=== PATIENT | female | born 1945 | race Caucasian/White ===

== ENCOUNTER → 2017-05-26 | Outpatient (CLI) | payer MEDICARE, OTHER ==
--- NOTE | 2017-05-27 11:41 | MRI ---
EXAM DESCRIPTION: Lumbar Spine w/o Contrast MRI. CLINICAL HISTORY: INTERVERTEBRAL DISC DISEASE COMPARISON: X-ray lumbar at [facility] May 20 2017. TECHNIQUE: Multiplanar, multiple standard sequences, non contrast MRI, lumbar spine. FINDINGS: L5-S1: Significant disc space narrowing especially laterally with minimal disc remnant anterior and posterior. Posterior disc remnant with spurs bulging 4 mm and abutting the thecal sac. Mild canal narrowing. Bilateral flavum ligament hypertrophy and facet arthrosis abutting the thecal sac. Posterior endplate ridging encroaching on the bilateral foramina which are borderline stenotic, more narrowing right. L4-5: Disc desiccation and minimal disc space loss. Minimal anterior bulging. Small Schmorl's nodes inferior L4. Trace anterolisthesis. Posterior broad-based 4 mm disc bulge abutting the thecal sac. Bilateral flavum ligament hypertrophy and facet joint effusion impressing on the lateral sac. Larger effusion at the left facet with posterior synovial cyst. Mild canal stenosis. Subarticular recesses are patent. Bilateral mild foraminal narrowing. L3-4: Disc desiccation and moderate disc space loss. Anterior bulging and endplate ridging. Modic type II endplate reactive changes anteriorly and to the left of midline. Posterior broad-based disc bulge 4 mm abutting the thecal sac. Bilateral facet arthrosis and flavum ligament hypertrophy impressing the sac. Borderline mild canal stenosis. Left side disc osteophyte complex encroaching on the foramen which is stenotic. Mild to moderate narrowing of the right foramen. L2-3: Normal signal in the disc with no bulging and disc space preserved. Minimal bulge into the left foramen. Flavum ligament hypertrophy abutting the thecal sac. Minimal canal narrowing. L1-L2: Minimal disc desiccation. Minimal anterior bulging. Disc space preserved and no posterior bulging. Minimal flavum ligament hypertrophy. Facets are unremarkable. Bilateral foramina are patent. T12-L1: Normal signal in the disc and disc space preserved. Posterior elements are unremarkable. Canal and foramina are patent. Conus terminates at this level. No scoliosis. Paravertebral soft tissues minimal muscle atrophy. Bilateral renal cysts or cyst like lesions and possible hydronephrosis.. Otherwise normal marrow signal in the remaining vertebral bodies and the posterior elements. Vertebral bodies are not compressed at any level. IMPRESSION: 1. Significant L5-S1 disc space narrowing and advanced spondylosis. Disc remnant posteriorly abutting the thecal sac. Bilateral endplate spur encroaching on the foramina which are borderline stenotic more on the right. Correlate for bilateral L5 radiculopathy. 2. Trace anterolisthesis L4-5. Posterior broad-based bulge. Multifactorial mild canal stenosis. Posterior facet arthrosis more on the left with posterior synovial cyst. 3. Moderate spondylosis anterior and to the left of midline at L3-4. Encroachment on the foramen which is mildly stenotic. Correlate for left L3 radiculopathy. Posterior disc bulge, and posterior element hypertrophy and arthrosis with multifactorial borderline canal stenosis. Electronically signed by: León Garcia MD 05/27/2017 11:39 AM CDT
== END ==
LOC: MRI 10:00
PROVIDERS: ATTEND Family Medicine
DX: M51.27 Other intervertebral disc displacement, lumbosacral region (principal); M47.9 Spondylosis, unspecified

== ENCOUNTER → 2017-06-02 | Outpatient (CLI) | payer MEDICARE, OTHER | LOC: RESP 10:03 | PROVIDERS: ATTEND Orthopaedic Surgery | DX: Z01.818 Encounter for other preprocedural examination (principal) ==

== ENCOUNTER 2017-06-24 05:44 | Day surgery (SDC) | payer MEDICARE, OTHER ==
[2017-06-24] MEDS ORDERED: LACTATED RINGERS 1,000 ML ONE (06:53)
[2017-06-24] MEDS ORDERED: methylPREDNISolone ACETATE 80 MG/ML VIAL ONE ×2 (08:09→12:26)
[2017-06-24] MEDS ORDERED: LIDOCAINE 1% W/ EPINEPHRINE 20 ML VIAL INJ ONE ×2 (08:09→12:26)
[2017-06-24] MEDS ORDERED: BUPIVACAINE 0.25% INJ 30 ML VIAL INJ ONE ×2 (08:09→12:26)
[2017-06-24] MEDS ORDERED: PROPOFOL 200 MG/20 ML VIAL IV ONE (10:00)
[2017-06-24 15:07] VITALS: TEMP 97.1
[2017-06-24 15:08] VITALS: BP 146/78; O2SAT 98
--- NOTE | 2017-06-25 09:26 | OP ---
DATE OF PROCEDURE: 06/24/17 PREOPERATIVE DIAGNOSIS: 1. Osteoarthritis of the hip. POSTOPERATIVE DIAGNOSIS: 1. Osteoarthritis of the hip. PROCEDURE: 1. Intraarticular injection. SURGEON: Jack Calhoun MD. [employer] MANAGER: León Taylor CST, SA-C. ANESTHESIA: Conscious sedation. COMPLICATIONS: None. FINDINGS: Severe osteoarthritis of the hip. INDICATION: The patient has a long history of pain in the hip. The pain is localized to the joint. Because of the ongoing pain and failure of more conservative measures, she has requested operative intervention. After discussing the risks, benefits and alternatives to that, the patient has given informed consent for that. PROCEDURE: The patient was brought to the Operating Room and placed in supine position. Conscious sedation was administered and the leg was flexed, abducted and externally rotated. The groin was prepped and fluoroscopic imaging was used to confirm needle placement into the hip joint through a medial portal. Once placement had been confirmed, a combination of lidocaine and Depo-Medrol were injected into the joint. After injection, the needle was withdrawn. Pressure was held on the injection site. A sterile band-aid was placed. The patient was then taken back to the Day Surgery Unit. POSTOPERATIVE INSTRUCTIONS: The patient will be weight-bearing as tolerated. The patient will followup with us in 10 days. #[id number] #[id number] [facility]
== END 2017-06-24 13:45 | disposition home or self-care (01) ==
LOC: AMB 05:44
PROVIDERS: ATTEND Orthopaedic Surgery
DX: M16.11 Unilateral primary osteoarthritis, right hip (principal); I12.9 Hypertensive chronic kidney disease with stage 1 through stage 4 chronic kidney disease, or unspecified chronic kidney disease; N18.9 Chronic kidney disease, unspecified; Z88.5 Allergy status to narcotic agent; Z88.2 Allergy status to sulfonamides; Z88.8 Allergy status to other drugs, medicaments and biological substances; Z79.899 Other long term (current) drug therapy
CPT/HCPCS: 01200; 20611; 76000; J1030; J3490; J7120

== ENCOUNTER → 2017-09-02 | Outpatient (CLI) | payer MEDICARE, OTHER | LOC: LAB.O 10:39 | PROVIDERS: ATTEND Orthopaedic Surgery | DX: Z01.818 Encounter for other preprocedural examination (principal) ==

== ENCOUNTER → 2017-11-19 | Outpatient (CLI) | payer MEDICARE, OTHER | LOC: GMAJ 11:35 | PROVIDERS: ATTEND Family Medicine | DX: I10 Essential (primary) hypertension (principal) ==

== ENCOUNTER → 2017-12-02 | Outpatient (CLI) | payer MEDICARE, OTHER ==
--- NOTE | 2017-12-03 15:07 | MAM ---
EXAM DESCRIPTION: 3D Screening BILATERAL : Digital Mammography. CLINICAL HISTORY: 72 years Female SCREENING . No complaints. No personal or family history of breast cancer. Childbirth. Postmenopausal 32 years. Taken HRT 5 or more years ago. Prior left breast biopsy benign.. Lifetime risk of developing breast cancer (Tyrer-Cuzick model)(%): 4.6. COMPARISON: Baseline study at this facility.. No prior reports available. TECHNIQUE: Bilateral CC and MLO projection full-field images, Digital tomosynthesis mammographic technique. Bilateral digital 2-D full-field MLO images. CAD not utilized. FINDINGS: The breast parenchymal density pattern is: Scattered areas of fibroglandular density. No skin thickening or nipple retraction. Right breast axillary lymph node. Intramammary lymph nodes left breast. Focal asymmetry in the mid to posterior third of the right breast at the 930 clock position approximately 6.5 cm from the nipple. Not associated with microcalcifications No focal, stellate mass or density, focal asymmetry , and no suspicious microcalcifications left breast. IMPRESSION: BI-RADS CATEGORY: 0 - INCOMPLETE- Need additional imaging evaluation. FOLLOW-UP: Recall for additional imaging: Orthogonal full-field digital diagnostic imaging Of the right breast, with targeted right breast ultrasound depending on diagnostic image findings. Written communication concerning the IMPRESSION and Follow-up, will be mailed to the patient and referring health care provider. Electronically signed by: León Garcia MD 12/03/2017 3:05 PM CDT
== END ==
LOC: MAMMO 09:53
PROVIDERS: ATTEND Family Medicine
DX: Z12.31 Encounter for screening mammogram for malignant neoplasm of breast (principal)

== ENCOUNTER → 2018-07-21 | Outpatient (CLI) | payer MEDICARE, OTHER ==
--- NOTE | 2018-07-22 17:03 | US ---
US THYROID CLINICAL STATEMENT: THYROID NODULE. COMPARISON: None TECHNIQUE: Transcutaneous scanning, grayscale and Doppler modes. FINDINGS: Size right thyroid lobe: 4.0 x 2.1 x 1.7 cm Size left thyroid lobe: 4.2 x 2.5 x 1.6 cm Size isthmus: 0.17 cm Estimated total number of nodules greater than or equal to 1 cm: 6. Is heterogeneous. Nodule 1: Size: 1.6 x 1.6 x 1.3 cm Location: Left Upper Composition: solid or almost completely solid: 2 points Echogenicity: hypoechoic: 2 points Shape: wider than tall: 0 points Margins: smooth: 0 points Echogenic foci: none: 0 points ACR Total Points: 4; ACR TI-RADS risk category: TR4 - moderately suspicious nodule. Nodule 2: Size: 1.6 x 1.0 x 0.9 cm Location: Right Lower Composition: solid or almost completely solid: 2 points Echogenicity: hypoechoic: 2 points Shape: wider than tall: 0 points Margins: smooth: 0 points Echogenic foci: none: 0 points ACR Total Points: 4; ACR TI-RADS risk category: TR4 - moderately suspicious nodule. Nodule 3: Size: 1.5 x 1.0 x 0.7 cm Location: Right Lower Composition: solid or almost completely solid: 2 points Echogenicity: hyperechoic: 1 point Shape: wider than tall: 0 points Margins: smooth: 0 points Echogenic foci: none: 0 points ACR Total Points: 3; ACR TI-RADS risk category: TR3 - mildly suspicious nodule. Nodule 4: Size: 1.3 x 1.0 x 1.0 cm Location: Left Mid Composition: solid or almost completely solid: 2 points Echogenicity: very hypoechoic: 3 points Shape: wider than tall: 0 points Margins: smooth: 0 points Echogenic foci: none: 0 points ACR Total Points: 5; ACR TI-RADS risk category: TR4 - moderately suspicious nodule. 2 other nodules were seen measuring at least 1 cm: 1.0 x 0.8 x 0.6 in the right lobe. 1.0 x 0.7 x 0.6 in the left lobe. No dominant solid mass, no distinct cyst, no parenchymal edema, and no abnormal vascularity or large calcifications in the soft tissues. IMPRESSION: 1. Nodule 1: ACR TI-RADS 2017 Category TR4. Recommend: Ultrasound-guided fine needle aspiration. Recommendations based upon [employer] Best Practice recommendations and ACR TI-RADS 2017 guidelines. Please see below*. 2. Nodule 2: ACR TI-RADS 2017 Category TR 4. Recommend: Ultrasound-guided fine needle aspiration 3. Nodule 3: ACR TI-RADS 2017 Category TR3. Recommend: Follow-up ultrasound in 1 year. 4. Nodule 4: ACR TI-RADS 2017 Category TR 4. Recommend: Follow-up ultrasound in 1 year. Soft tissue around the thyroid gland is unremarkable. *ACR TI-RADS 2017 Recommendations: TR1: No FNA or follow up TR2: No FNA or follow up TR3: FNA if >/= 2.5 cm, follow up if 1.5 - 2.4 cm in 1, 3, and 5 years TR4: FNA if >/= 1.5 cm, follow up if 1.0 - 1.4 cm in 1, 2, 3, and 5 years TR5: FNA if >/= 1.0 cm, follow up if 0.5 - 0.9 cm every year for 5 years ACR TI-RADS recommends that no more than two nodules with the highest ACR TI-RADS total point should be biopsied and no more than four nodules should be followed. These recommendations do not apply to patients with increased risk for thyroid cancer or patients with symptomatic thyroid disease. Electronically signed by: León Garcia MD 07/22/2018 5:01 PM CDT
== END ==
LOC: US 14:00
PROVIDERS: ATTEND Family Medicine
DX: E04.2 Nontoxic multinodular goiter (principal)

== ENCOUNTER → 2018-07-22 | Outpatient (CLI) | payer MEDICARE, OTHER ==
--- NOTE | 2018-07-23 10:17 | CT ---
EXAM DESCRIPTION: Abdomen/Pelvis w/o Contrast: Computed Tomography. CLINICAL HISTORY: 72 years Female KIDNEY MASS multiple cysts or cystic masses. COMPARISON: Lumbar spine MRI scan without contrast 05/26/2017. TECHNIQUE: Spiral-axial scans 2.5 x 2.5 mm intervals through the abdomen and pelvis without oral or IV contrast. Coronal and sagittal 2.0 mm reconstructions. Total Exam DLP: 498.78 mGy-cm. This exam was performed according to our departmental CT dose-optimization program which includes automated exposure control, adjustment of the mA and/or kV according to patient size and/or use of iterative reconstruction technique; to reduce radiation dose to as low as reasonably achievable (ALARA). FINDINGS: Lung bases and pleura: Parenchymal pleural thickening in the inferior lingula. Liver, stomach, spleen, and adrenal glands: Calcification in the posterior wall of the gastric antrum. Normal size density liver, spleen, adrenal glands. No ascites. Pancreas, Gallbladder, and Ducts: Calcification abutting the pancreas present to be in the splenic artery. Gallbladder small. Duct and pancreas otherwise negative. Kidneys and Ureters: Bilateral low-density objects in the kidneys. 9 in the right kidney and 6 in the left kidney. Through these regions in the right kidney are low-density with no well-defined margins and Hounsfield density +25 and +34. One is lateral abutting the liver in the upper pole and the second is anterior at the level of the right renal hilum. No calcifications. No hydronephrosis or perirenal fluid bilaterally. Included ureters show no radiodense stones. Mesentery: No fatty stranding or fascial thickening. Aorta: Moderate atherosclerotic calcification and narrowing of the lumen. Small Bowel: Gas in multiple segments but nondistended with no air-fluid levels. Terminal Ileum/Cecum: Normal caliber TI with minimal distention of the cecum by fecal matter. Small stump of the appendix. No inflammatory changes. Colon: Minimal to moderate fecal material throughout the colon. Small diverticula in the included sigmoid colon with no inflammatory changes or obstruction. Pelvic Organs: No free fluid. No radiodense stones in the urinary bladder. Vaginal cuff grossly normal. Spine and Bony Pelvis: Spondylosis L5-S1 canal and foraminal narrowing. Also L3-4 L4-5 with canal and foraminal narrowing and grade 1 anterolisthesis L4-5. Right total hip arthroplasty with no bony complications but the distal femoral stem is not visualized. Arthrosis left hip joint. Abdominal Wall/Back Soft Tissues: Small bilateral fatty inguinal hernias not containing bowel. Umbilical diastases not containing bowel. IMPRESSION: 1. Multiple low-density structures bilateral kidneys with most of these measuring has fluid density cyst. 2 lesions in the right kidney measuring as solid density. Noncontrast evaluation for renal mass is not sensitive. If patient able to tolerate IV contrast, recommend follow-up renal CT contrast protocol. If not able to tolerate IV contrast, consider MRI scan kidneys without and with IV gadolinium contrast and/or ultrasound. MRI is a more sensitive examination. 2. Calcification in the posterior wall of the gastric antrum. No apparent wall thickening or intrinsic mass. No adjacent omental inflammatory changes or fluid. 3. Diverticulosis of the distal colon with no evidence of complications. 4. Spondylosis lumbar spine and thoracic spine. Electronically signed by: León Garcia MD 07/23/2018 10:15 AM CDT
== END ==
LOC: RAD 10:37
PROVIDERS: ATTEND Internal Medicine Nephrology
DX: N18.4 Chronic kidney disease, stage 4 (severe) (principal); N28.89 Other specified disorders of kidney and ureter; K31.89 Other diseases of stomach and duodenum; K57.30 Diverticulosis of large intestine without perforation or abscess without bleeding; M47.896 Other spondylosis, lumbar region; M47.894 Other spondylosis, thoracic region

== ENCOUNTER → 2018-07-24 | Outpatient (CLI) | payer MEDICARE, OTHER | LOC: LAB.O 08:56 | PROVIDERS: ATTEND Internal Medicine Nephrology | DX: N18.4 Chronic kidney disease, stage 4 (severe) (principal) ==

== ENCOUNTER → 2018-08-11 | Outpatient (CLI) | payer MEDICARE, OTHER ==
--- NOTE | 2018-08-11 12:02 | MRI ---
EXAM DESCRIPTION: Abdomen CLINICAL HISTORY: 73 years Female, KIDNEY MASS COMPARISON: CT abdomen and pelvis without contrast dated . TECHNIQUE: Multiplanar multiecho imaging of the abdomen was performed without gadolinium administration. FINDINGS: The visualized lower thorax appears normal. Limited evaluation of the solid organs due to the lack of intravenous contrast. The liver, gallbladder, pancreas and spleen appear normal. Bilateral adrenal glands demonstrate no gross abnormality. Multiple T2 hyperintense lesions are identified throughout both kidneys most likely representing simple cysts. No definite solid lesion is identified in the right kidney in the areas of concern, on this noncontrast examination. The stomach is well-distended and appears grossly normal. Multiple diverticula are noted in the imaged portions of the colon. Degenerative changes are identified in the visualized spine.. IMPRESSION: Bilateral simple renal cysts are identified. No evidence of solid lesion on this noncontrast examination. Incidental note is made of colonic diverticulosis. Electronically signed by: Makenna Link MD 08/11/2018 11:59 AM CDT
== END ==
LOC: MRI 09:06
PROVIDERS: ATTEND Internal Medicine Nephrology
DX: N28.89 Other specified disorders of kidney and ureter (principal); N28.1 Cyst of kidney, acquired; K57.30 Diverticulosis of large intestine without perforation or abscess without bleeding

== ENCOUNTER → 2018-10-01 | Outpatient (CLI) | payer MEDICARE, OTHER ==
--- NOTE | 2018-10-02 09:47 | US ---
EXAM DESCRIPTION: Venous,Upper Extremity RT: ULTRASOUND. CLINICAL HISTORY: PHLEBITIS AND THROMBOPHLEBITIS OF OTHER SITES. Injury to right arm which is palpable. COMPARISON: None Available. TECHNIQUE: Two -dimensional and doppler sonographic evaluation of the deep venous system of the right upper extremity. FINDINGS: Doppler evaluation shows normal color flow and normal phasicity and augmentation of the right subclavian, jugular, axillary, basilic, brachial, radial vein and ulnar vein.. The right cephalic vein was not visualized. The right upper extremity deep veins showed normal occlusion with transducer pressure. Two-dimensional survey showed no echogenic thrombus within these veins. Soft tissue mass palpable at the region of injury is heterogeneous dense and not vascular. Subdermal adipose layer. Dimensions are 10.9 x 6.1 x 4.6 mm. Nonvascular. IMPRESSION: Duplex ultrasound evaluation of the right upper extremity deep venous system showing no thrombosis. Subcutaneous heterogeneous mass corresponding to injury, most likely resolving hematoma.. Electronically signed by: León Garcia MD 10/02/2018 9:46 AM CDT
== END ==
LOC: US 09:00
PROVIDERS: ATTEND Family Medicine
DX: I80.8 Phlebitis and thrombophlebitis of other sites (principal); R22.31 Localized swelling, mass and lump, right upper limb

== ENCOUNTER → 2018-12-10 | Outpatient (CLI) | payer MEDICARE, OTHER ==
--- NOTE | 2018-12-14 08:40 | MAM ---
EXAM DESCRIPTION: 3D Screening BILATERAL : Digital Mammography. CLINICAL HISTORY: 73 years Female ANNUAL SCREENING no complaints. No personal or family history of breast cancer. Menarche age 11. Childbirth. Hysterectomy 20+ years. HRT less than 5 years ago. Prior left benign breast biopsy. Lifetime risk of developing breast cancer (Tyrer-Cuzick model)(%): 5.9. COMPARISON: Bilateral screening digital breast tomosynthesis 02 December 2017.. TECHNIQUE: Bilateral CC and MLO projection full-field images, digital tomosynthesis mammographic technique. Bilateral digital 2-D full-field MLO images. CAD not available for tomosynthesis or 2-D images. FINDINGS: The breast parenchymal density pattern is: Heterogeneously dense breasts which may obscure small masses. No skin thickening or nipple retraction. Bilateral vascular calcifications. Right axillary lymph node. Bilateral skin moles. Bilateral solitary microcalcifications. No new focal, stellate mass or density, focal asymmetry , and no suspicious microcalcifications bilaterally. Stable mammograms compared to prior study. IMPRESSION: Benign exam. BIRAD CATEGORY: 2 BENIGN FINDINGS. RECOMMENDATIONS: FOLLOW UP: Routine digital bilateral mammographic screening, one year interval from November 2018. Written communication explaining the IMPRESSION and follow-up, will be mailed to the patient and referring health care provider. According to the [employer], yearly mammograms are recommended starting at age 40 and continuing as long as a woman is in good health. Any breast change noted on a breast self-exam should be reported promptly to the patient's healthcare provider. Breast MRI is recommended for women with an approximately 20-25% or greater lifetime risk of breast cancer, including women with a strong family history of breast or ovarian cancer and women who have been treated for Hodgkin's disease. A negative mammographic report should not delay tissue diagnosis in patients with significant clinical history or physical findings. Extremely dense breast tissue limits the sensitivity of digital mammography. Electronically signed by: León Garcia MD 12/14/2018 8:38 AM [employer]
== END ==
LOC: MAMMO 09:00
PROVIDERS: ATTEND Family Medicine
DX: Z12.31 Encounter for screening mammogram for malignant neoplasm of breast (principal)

== ENCOUNTER → 2019-03-08 | Outpatient (CLI) | payer MEDICARE, OTHER ==
--- NOTE | 2019-03-08 11:27 | RAD ---
EXAM DESCRIPTION: Pelvis CLINICAL HISTORY: 73 years Female, PAIN IN RIGHT HIP COMPARISON: None. TECHNIQUE: AP radiograph of the pelvis was performed. FINDINGS: The pelvic ring appears grossly intact on this single AP radiograph. No acute fracture or dislocation. Bilateral sacroiliac joints appear normal. Changes of right total hip arthroplasty. Mild degenerative changes are identified in the left hip. The visualized lumbo-sacral spine demonstrates mild degenerative changes. IMPRESSION: Single AP radiograph of the pelvis demonstrates grossly intact pelvic ring. Changes of right total hip arthroplasty. Mild degenerative changes are identified in the left hip. Electronically signed by: Makenna Link MD 03/08/2019 11:26 AM [facility]
--- NOTE | 2019-03-08 11:28 | RAD ---
EXAM DESCRIPTION: Hip,Right 2 Views CLINICAL HISTORY: 73 years Female, PAIN IN RIGHT HIP COMPARISON: None available. FINDINGS: The visualized bones are well-mineralized.No acute fracture or dislocation. Changes of right total hip arthroplasty. The soft tissues appear grossly unremarkable. IMPRESSION: Intact right total hip arthroplasty. No acute traumatic abnormality. Electronically signed by: Makenna Link MD 03/08/2019 11:26 AM [facility]
== END ==
LOC: RAD 08:04
PROVIDERS: ATTEND Orthopaedic Surgery
DX: M16.12 Unilateral primary osteoarthritis, left hip (principal); Z96.641 Presence of right artificial hip joint

== ENCOUNTER → 2019-08-23 | Outpatient (CLI) | payer MEDICARE, OTHER | LOC: GMAJ 14:10 | PROVIDERS: ATTEND Family Medicine | DX: E04.1 Nontoxic single thyroid nodule (principal) ==

== ENCOUNTER → 2019-10-05 | Outpatient (CLI) | payer MEDICARE, OTHER ==
--- NOTE | 2019-10-05 13:23 | MRI ---
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 FINDINGS: The midline structures are not displaced. Sulci are age appropriate. The lateral, third, and fourth ventricles are normal in size, shape, and anatomic positioning. Normal lang-white differentiation is seen. Absent flow void in the intracranial internal carotid artery with diminished flow void in the supraclinoid right ICA to MCA patent anterior communicating artery. Patent bilateral posterior communicating arteries with small basilar artery are seen. There is no evidence of mass, mass effect, hydrocephalus, or acute intracranial hemorrhage. No abnormal extra-axial fluid collections are seen. No abnormal increased signal is seen on FLAIR, T2, or diffusion-weighted sequences. Gradient echo images show no abnormal signal. The pituitary is unremarkable. Visualized paranasal sinuses show 10 mm focus of increased T2 signal in the posterior sphenoid sinus stable from previous.. The visualized orbits and mastoid air cells are unremarkable. IMPRESSION: Age-appropriate atrophy. No MRI evidence of acute intracranial ischemia, mass, or mass effect. 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 Asymmetric decreased flow void in the right supraclinoid ICA to MCA is seen likely related to slow flow and reconstitution via collateral vessels. The posterior communicating arteries appear patent. Electronically signed by: Kentrell Hinojosa MD 10/05/2019 1:21 PM CDT
== END | disposition home or self-care (01) ==
LOC: MRI 09:01
PROVIDERS: ATTEND Psychiatry & Neurology Neurology
DX: I66.01 Occlusion and stenosis of right middle cerebral artery (principal)

== ENCOUNTER → 2019-12-28 | Outpatient (CLI) | payer MEDICARE, OTHER ==
--- NOTE | 2019-12-29 12:50 | MAM ---
EXAM DESCRIPTION: 3D Screening BILATERAL : Digital Mammography. CLINICAL HISTORY: 74 years Female screening . No complaints and no family history breast cancer. Menarche age 11. Childbirth age 21. Menopause age unknown. No HRT. Lifetime risk of developing breast cancer (Tyrer-Cuzick model)(%): 4.3. COMPARISON: Bilateral screening digital breast tomosynthesis November 2018. Bilateral screening digital breast 2-D imaging November 2017. TECHNIQUE: Bilateral CC and MLO projection full-field images, digital tomosynthesis mammographic technique. Bilateral digital 2-D full-field MLO images. CAD available for 2-D images. FINDINGS: The breast parenchymal density pattern is: Heterogeneously dense breast tissue, which may obscure small masses. No skin thickening or nipple retraction. Axillary nodes. Vascular calcifications. Intramammary circumscribed nodes or cysts stable. No new focal, stellate mass or density, focal asymmetry , and no suspicious microcalcifications bilaterally. Stable mammograms compared to prior study. IMPRESSION: Benign exam. BIRAD CATEGORY: 2 BENIGN FINDINGS. RECOMMENDATIONS: FOLLOW UP: Routine digital bilateral mammographic screening, one year interval from December 2019. Written communication explaining the IMPRESSION and follow-up, will be mailed to the patient and referring health care provider. According to the [employer], yearly mammograms are recommended starting at age 40 and continuing as long as a woman is in good health. Any breast change noted on a breast self-exam should be reported promptly to the patient's healthcare provider. Breast MRI is recommended for women with an approximately 20-25% or greater lifetime risk of breast cancer, including women with a strong family history of breast or ovarian cancer and women who have been treated for Hodgkin's disease. A negative mammographic report should not delay tissue diagnosis in patients with significant clinical history or physical findings. Extremely dense breast tissue limits the sensitivity of digital mammography. Electronically signed by: León Garcia MD 12/29/2019 12:48 PM [employer]
== END ==
LOC: MAMMO 09:30
PROVIDERS: ATTEND Family Medicine
DX: Z12.31 Encounter for screening mammogram for malignant neoplasm of breast (principal)

== ENCOUNTER → 2020-02-16 | Outpatient (CLI) | payer MEDICARE, OTHER ==
--- NOTE | 2020-02-16 12:46 | MRI ---
Study: MRI of the Left Shoulder. Indication: PARTIAL ROTATOR CUFF TEAR Technique: Multiplanar, multi sequence MRI of the left shoulder was obtained without intravenous contrast. Comparison: None. 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 Type II acromion with mild lateral downsloping. Trace subacromial/subdeltoid bursal fluid. High-grade supraspinatus and infraspinatus tendinosis noted with irregular low to intermediate grade interstitial/articular tearing throughout the supraspinatus tendon and anterior margin infraspinatus tendon. No full-thickness tear. Subscapularis tendinosis. Teres minor tendon intact. Mild atrophy and grade 1 fatty infiltration rotator cuff musculature. Long head biceps tendon intact. Anterior superior sublabral foramen. Circumferential labral truncation. Minimal glenohumeral joint osteoarthritis with tiny joint effusion. No acute fracture. Impression: Supraspinatus and infraspinatus tendinosis with irregular low to intermediate grade interstitial/articular tearing throughout the supraspinatus tendon and anterior margin infraspinatus tendon. Subscapularis tendinosis. Mild atrophy and grade 1 fatty infiltration rotator cuff musculature. Circumferential labral truncation. Minimal glenohumeral joint osteoarthritis. 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 Electronically signed by: Tommie Palumbo MD 02/16/2020 12:45 PM [facility]
== END ==
LOC: MRI 08:04
PROVIDERS: ATTEND Orthopaedic Surgery
DX: M75.102 Unspecified rotator cuff tear or rupture of left shoulder, not specified as traumatic (principal); M77.9 Enthesopathy, unspecified; M62.50 Muscle wasting and atrophy, not elsewhere classified, unspecified site; S43.432A Superior glenoid labrum lesion of left shoulder, initial encounter; M19.012 Primary osteoarthritis, left shoulder